=== PATIENT | female | born 1980 | race Caucasian/White ===

== ENCOUNTER 2022-06-08 09:44 | Emergency (ER) | payer MEDICAID ==
[2022-06-08 11:06] LABS: CORONAVIRUS COVID-19 NAA NEGATIVE (NEGATIVE)
[2022-06-08 11:07] LABS: RESPIRATORY SYNCYTIAL VIR NAA NEGATIVE (NEGATIVE)
== END 2022-06-08 11:40 | disposition home or self-care (01) ==
LOC: VM.ED 09:44
DX: J98.8 Other specified respiratory disorders (principal); Z20.822 Contact with and (suspected) exposure to COVID-19
CPT/HCPCS: 0241U; 36415; 85025; 99283; 99284

== ENCOUNTER 2023-01-26 22:55 | Emergency (ER) | payer MEDICAID ==
[2023-01-26] MEDS ORDERED: Take Home: Amoxicillin/Clavulanate K 875-125 MG Tab, 2 Tab Pack PO ONE (23:13)
[2023-01-26] MEDS ORDERED: Take Home: Acetaminophen/Codeine 300 MG/30 MG, 5 Tab Pack PO ONE (23:13)
== END 2023-01-26 23:30 | disposition home or self-care (01) ==
LOC: VM.ED 22:55
DX: K02.9 Dental caries, unspecified (principal); F17.210 Nicotine dependence, cigarettes, uncomplicated; Z79.899 Other long term (current) drug therapy
CPT/HCPCS: 99282; A9270

== ENCOUNTER 2023-02-14 12:12 | Emergency (ER) | payer MEDICAID | END 2023-02-14 13:05 | disposition home or self-care (01) | LOC: VM.ED 12:12 | DX: M25.562 Pain in left knee (principal); K21.9 Gastro-esophageal reflux disease without esophagitis; F17.210 Nicotine dependence, cigarettes, uncomplicated; Z79.899 Other long term (current) drug therapy | CPT/HCPCS: 73562-LT; 99283 ==

== ENCOUNTER 2024-12-10 21:41 | Emergency (ER) | payer MEDICAID ==
[2024-12-10] MEDS: Dexamethasone 4 MG/ML SDV IM ONE (22:05)
== END 2024-12-10 22:15 | disposition home or self-care (01) ==
LOC: VM.ED 21:41
DX: R05.1 Acute cough (principal); Z79.899 Other long term (current) drug therapy; Z86.16 Personal history of COVID-19
CPT/HCPCS: 96372; 99283; A9270-GY; J1100